=== PATIENT | female | born 1940 | race Caucasian/White ===

== ENCOUNTER 2018-11-09 02:26 | Observation (INO) ==
--- NOTE | 2018-11-09 03:39 | ED ---
HPI General Chief Complaint: Abdominal Pain Stated Complaint: lower abd pain since Monday night Time Seen by Provider: 11/09/18 03:30 History of Present Illness HPI narrative: pt has had 1 day of suprapubic pain , it in LLQ and suprapubic and increased frequency . " i am peeing every hour , " this is unusual for her. 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 Now LLQ pain and achy feeling withoout radiation , says it feels diffirent than pain she had long ago from pancreatic area . no periumbical pain Related Data Home Medications Medication Instructions Recorded Confirmed Unable to Obtain Home Meds 11/09/18 11/09/18 Allergies Allergy/AdvReac Type Severity Reaction Status Date / Time No Known Allergies Allergy Verified 11/09/18 03:08 [facility] Medical History Medical History Cancer of kidney (Acute) H/O unilateral nephrectomy (Acute) H/O: hysterectomy (Acute) Pancreatic cancer (Acute) Social History Social History Substance History: No History of Abuse Second Hand Smoke Exposure: No Smoking Status: Never smoker How Often Do You Have a Drink Containing Alcohol: Never Recent Travel in [facility] within the Last 8 Weeks: No Recent Out of Country Travel within the Last 8 Weeks: No Immunization History Tetanus Immunization: >5 Years Exam Narrative Exam Narrative: GENERAL: pt is non toxic appearing no sign of distress SKIN: Warm and dry. HEAD: Atraumatic. Normocephalic. EYES: Pupils equal and round. No scleral icterus. No injection or drainage. ENT: No nasal bleeding or discharge. Mucous membranes pink and moist. NECK: Trachea midline. No JVD. CARDIOVASCULAR: Regular rate and rhythm. RESPIRATORY: No accessory muscle use. Clear to auscultation. Breath sounds equal bilaterally. GASTROINTESTINAL: Abdomen tender LLQ pain non distended . MUSCULOSKELETAL: Extremities without clubbing, cyanosis, or edema. No obvious deformities. NEUROLOGICAL: Awake and alert. No obvious cranial nerve deficits. Motor grossly within normal limits. Five out of 5 muscle strength in the arms and legs. Normal speech. PSYCHIATRIC: Appropriate mood and affect; insight and judgment normal. Course Initial Documented Vital Signs Temperature 98.6 F 11/09/18 02:30 Pulse Rate 88 11/09/18 02:30 Respiratory Rate 18 11/09/18 02:30 Blood Pressure 173/73 H 11/09/18 02:30 Pulse Oximetry 98 11/09/18 02:30 Last Documented Vital Signs Temperature 99 F 11/09/18 07:15 Pulse Rate 74 11/09/18 07:15 Respiratory Rate 16 11/09/18 07:15 Blood Pressure 118/86 11/09/18 07:15 Pulse Oximetry 98 11/09/18 07:15 Medical Decision Making Lab Data Result diagrams: 11/09/18 03:51 11/09/18 03:51 Lab Results 11/09/18 11/09/18 11/09/18 Range/Units 03:51 03:51 03:51 CBC w Diff Auto diff final WBC 7.6 (4.0-11.0) th/mm3 RBC 3.68 L (4.00-5.30) mil/mm3 Hgb 10.8 L (11.6-15.3) gm/dL Hct 33.8 L (35.0-46.0) % MCV 91.8 (80.0-100.0) fL MCH 29.3 (27.0-34.0) pg MCHC 31.9 L (32.0-36.0) % RDW 14.4 (11.6-17.2) % Plt Count 293 (150-450) th/mm3 MPV 9.4 (7.0-11.0) fL Neut % (Auto) 74.4 H (16.0-70.0) % Lymph % (Auto) 16.9 (9.0-44.0) % [place] % (Auto) 6.9 (0.0-8.0) % Eos % (Auto) 1.3 (0.0-4.0) % Baso % (Auto) 0.5 (0.0-2.0) % Neut # (Auto) 5.7 (1.8-7.7) th/mm3 Lymph # (Auto) 1.3 (1.0-4.8) th/mm3 [place] # (Auto) 0.5 (0.0-0.9) th/mm3 Eos # (Auto) 0.1 (0.0-0.4) th/mm3 Baso # (Auto) 0.0 (0.0-0.2) th/mm3 WBC Differential . Differential Comment . Sodium 140 (136-145) meq/L Potassium 4.9 (3.5-5.1) meq/L Chloride 107 (98-107) meq/L Carbon Dioxide 26.0 (21.0-32.0) meq/L Anion Gap 7 (5-15) meq/L BUN 27 H (7-18) mg/dL Creatinine 1.30 H (0.50-1.00) mg/dL Estimated GFR 40 L (>89) mL/min Random Glucose 116 H (74-106) mg/dL Calcium 8.4 L (8.5-10.1) mg/dL Total Bilirubin 0.4 (0.2-1.0) mg/dL AST 21 (15-37) U/L ALT 17 (10-53) U/L Alkaline Phosphatase 76 (45-117) U/L Total Protein 6.6 (6.4-8.2) g/dL Albumin 2.9 L (3.4-5.0) g/dL Lipase 56 L (73-393) U/L Urine Color (Yellw/Straw) Urine Clarity (Clear) Urine pH (5.0-8.5) Ur Specific [place] (1.002-1.035) Urine Protein (Neg-Trace) mg/dL Urine Glucose (UA) (Negative) mg/dL Urine Ketones (Negative) mg/dL Urine Occult Blood (Negative) Urine Nitrate (Negative) Urine Bilirubin (Negative) Urine Urobilinogen (Less than 2) mg/dL Ur Leukocyte Esterase (Negative) Urine RBC (0-3) /hpf Urine WBC (0-5) /hpf Ur Squamous Epith Cells (0-5) /hpf Urine Bacteria (None) /hpf Ur Microscopic Review 11/09/18 Range/Units 03:51 CBC w Diff WBC (4.0-11.0) th/mm3 RBC (4.00-5.30) mil/mm3 Hgb (11.6-15.3) gm/dL Hct (35.0-46.0) % MCV (80.0-100.0) fL MCH (27.0-34.0) pg MCHC (32.0-36.0) % RDW (11.6-17.2) % Plt Count (150-450) th/mm3 MPV (7.0-11.0) fL Neut % (Auto) (16.0-70.0) % Lymph % (Auto) (9.0-44.0) % [place] % (Auto) (0.0-8.0) % Eos % (Auto) (0.0-4.0) % Baso % (Auto) (0.0-2.0) % Neut # (Auto) (1.8-7.7) th/mm3 Lymph # (Auto) (1.0-4.8) th/mm3 [place] # (Auto) (0.0-0.9) th/mm3 Eos # (Auto) (0.0-0.4) th/mm3 Baso # (Auto) (0.0-0.2) th/mm3 WBC Differential Differential Comment Sodium (136-145) meq/L Potassium (3.5-5.1) meq/L Chloride (98-107) meq/L Carbon Dioxide (21.0-32.0) meq/L Anion Gap (5-15) meq/L BUN (7-18) mg/dL Creatinine (0.50-1.00) mg/dL Estimated GFR (>89) mL/min Random Glucose (74-106) mg/dL Calcium (8.5-10.1) mg/dL Total Bilirubin (0.2-1.0) mg/dL AST (15-37) U/L ALT (10-53) U/L Alkaline Phosphatase (45-117) U/L Total Protein (6.4-8.2) g/dL Albumin (3.4-5.0) g/dL Lipase (73-393) U/L Urine Color Yellow (Yellw/Straw) Urine Clarity Slightly cloudy (Clear) Urine pH 5.5 (5.0-8.5) Ur Specific [place] 1.025 (1.002-1.035) Urine Protein 100 H (Neg-Trace) mg/dL Urine Glucose (UA) Negative (Negative) mg/dL Urine Ketones Negative (Negative) mg/dL Urine Occult Blood Moderate H (Negative) Urine Nitrate Negative (Negative) Urine Bilirubin Negative (Negative) Urine Urobilinogen 0.2 (Less than 2) mg/dL Ur Leukocyte Esterase Negative (Negative) Urine RBC 0-3 (0-3) /hpf Urine WBC 0-5 (0-5) /hpf Ur Squamous Epith Cells 0-5 (0-5) /hpf Urine Bacteria Occasional H (None) /hpf Ur Microscopic Review Microscopic reviewed Imaging Data Radiologist's impression: Abdomen/Pelvis CT 11/09/18 05:16 CONCLUSION: 1. I don't have any priors. There is a large, malignant appearing mass in the curtis hepatis, presumably arising from the pancreatic head. It engulfs the second and third portions of the duodenum but without gastric obstruction. Also only slight intrahepatic biliary distention. No evidence of distant metastatic disease. 2. Moderate severity, uncomplicated acute diverticulitis of the sigmoid colon. 3. Cholecystectomy, right nephrectomy and hysterectomy changes. Discharge Plan Physicians Team ED Provider: Milton Mclaughlin Primary Care Provider: UNKNOWN, Rxs /Orders / Referrals /Forms Prescriptions: No Action Unable to Obtain Home Meds RF: 0 Status ED Status: With Doctor
[2018-11-09 04:01] LABS: Clarity,Urine Slightly Cloudy (Clear); Color,Urine Yellow (Yellw/Straw); Glucose,Urine (UA) Negative (Negative); PH,Urine 5.5 (5.0-8.5); Specific Gravity,Urine 1.025 (1.002-1.035)
[2018-11-09 04:02] LABS: Bilirubin,Urine Negative (Negative); Leukocyte Esterase,Urine Negative (Negative); Nitrite,Urine Negative (Negative); Urobilinogen,Urine 0.2 mg/dL (Less than 2)
[2018-11-09 04:03] LABS: Baso % (Auto) 0.5 % (0.0-2.0); Eos # (Auto) 0.1 th/mm3 (0.0-0.4); Eos % (Auto) 1.3 % (0.0-4.0); Hematocrit 33.8 % (35.0-46.0); Hemoglobin 10.8 gm/dL (11.6-15.3); Lymph # (Auto) 1.3 th/mm3 (1.0-4.8); Lymph % (Auto) 16.9 % (9.0-44.0); Mean Corpuscular HGB Conc 31.9 % (32.0-36.0); Mean Corpuscular Hemoglobin 29.3 pg (27.0-34.0); Mean Corpuscular Volume 91.8 fL (80.0-100.0); Mean Platelet Volume 9.4 fL (7.0-11.0); Mono # (Auto) 0.5 th/mm3 (0.0-0.9); Mono % (Auto) 6.9 % (0.0-8.0); Neut # (Auto) 5.7 th/mm3 (1.8-7.7); Neut % (Auto) 74.4 % (16.0-70.0); Platelet Count 293 th/mm3 (150-450); Red Blood Count 3.68 mil/mm3 (4.00-5.30); Red Cell Distribution Width 14.4 % (11.6-17.2); White Blood Count 7.6 th/mm3 (4.0-11.0)
[2018-11-09 04:17] LABS: Chloride 107 meq/L (98-107); Potassium 4.9 meq/L (3.5-5.1); Sodium 140 meq/L (136-145)
[2018-11-09 04:18] LABS: Bacteria,Urine Occasional /hpf; RBC,Urine 0-3 /hpf (0-3); Squamous Epithelial Cell,Urine 0-5 /hpf (0-5); WBC,Urine 0-5 /hpf (0-5)
[2018-11-09 04:20] LABS: Calcium 8.4 mg/dL (8.5-10.1)
[2018-11-09 04:21] LABS: Albumin 2.9 g/dL (3.4-5.0); Anion Gap 7 meq/L (5-15); Blood Urea Nitrogen 27 mg/dL (7-18); Glucose,Random 116 mg/dL (74-106)
[2018-11-09 04:24] LABS: Alanine Aminotransferase 17 U/L (10-53); Aspartate Aminotransferase 21 U/L (15-37); Glomerular Filtration Rate 40 mL/min (>89)
[2018-11-09 04:25] LABS: Total Protein 6.6 g/dL (6.4-8.2)
[2018-11-09 04:27] LABS: Alkaline Phosphatase 76 U/L (45-117)
--- NOTE | 2018-11-09 06:57 | CT ---
EXAM DATE: 11/09/2018 6:46 AM EST AGE/SEX: 78 years / Female INDICATIONS: Left lower quadrant pain. CLINICAL DATA: This is the patient's initial encounter. Patient reports that signs and symptoms have been present for 1 day and indicates a pain score of 5/10. MEDICAL/SURGICAL HISTORY: . Renal cancer. Pancreatic cancer. . Hysterectomy. Unilateral nephre ctomy. RADIATION DOSE: 24.53 CTDI (mGy) COMPARISON: No prior exams available for comparison. TECHNIQUE: Multiple contiguous axial images were obtained through the abdomen. Images were obtained using multiple row detector helical technique. Using automated exposure control and adjustment of the mA and/or kV according to patient size, radiation dose was kept as low as reasonably achievable to o btain optimal diagnostic quality images. DICOM format image data is available electronically for rev iew and comparison. FINDINGS: There is a mass in the curtis hepatis measuring approximately 5.5 x 7.3 x 6.6 cm in size, appears to b e arising from the pancreatic head. It engulfs the second and third portions of the duodenum. Pancrea tic body and tail are atrophic. There is only mild intrahepatic biliary distention. Patient has had c holecystectomy and right nephrectomy. No focal hepatic lesion. Noncontrast appearance of the spleen, adrenal glands and left kidney within normal limits. There is moderate severity, acute diverticulitis of the sigmoid colon. No abscess, perforation or obs truction. Evidence of previous hysterectomy. Trace atelectasis of the visualized lung bases. No acute bony abnormality demonstrated. Degenerative changes are seen in the spine and sacroiliac joints. CONCLUSION: 1. I don't have any priors. There is a large, malignant appearing mass in the curtis hepatis, presuma kirstin arising from the pancreatic head. It engulfs the second and third portions of the duodenum but wi thout gastric obstruction. Also only slight intrahepatic biliary distention. No evidence of distant m etastatic disease. 2. Moderate severity, uncomplicated acute diverticulitis of the sigmoid colon. 3. Cholecystectomy, right nephrectomy and hysterectomy changes. Electronically signed by: Alberto Aranda MD Board Certified Radiologist 11/09/2018 6:55 AM EST
[2018-11-09] MEDS ORDERED: Ciprofloxacin 400 MG/200 ML 400 MG/200 ML PIGGYBACK IV.SIG ONE (07:15)
[2018-11-09] MEDS ORDERED: Bisacodyl 10 MG Supp RECTAL PRN (07:59)
[2018-11-09] MEDS ORDERED: Acetaminophen 325 MG Tablet PO PRN (07:59)
[2018-11-09] MEDS: Sod Chloride 0.9% Inj 1,000 ML IV.CONT SCH (09:21)
[2018-11-09] MEDS ORDERED: Naloxone Inj 0.4 MG/ML Vial IV.PUSH PRN (17:42)
[2018-11-09] MEDS ORDERED: oxyCODONE/Acetaminophen 10/325 Tablet PO PRN (17:42)
--- NOTE | 2018-11-09 17:55 | P.HPIM ---
History of Present Illness Primary Care Physician: UNKNOWN History of Present Illness: 78-year-old female with a history of reportedly incurable renal cell carcinoma with known metastasis to pancreas, currently on chemotherapy holiday for the past 2 months, who presents with a 2-day history of crampy intermittent left lower quadrant abdominal pain occasionally radiating to the right lower quadrant. Denies any fevers, chills, chest pain, shortness breath, nausea, vomiting, diarrhea, constipation. Review of Systems Patient reports chronic night sweats All other systems reviewed negative except as stated in HPI PMFSH - History History Provided By: Patient - Medical History Medical History: Medical History (Last Reviewed 11/09/18 @ 17:45 by Kirt Medellin MD) Cancer of kidney H/O unilateral nephrectomy H/O: hysterectomy Pancreatic cancer - Family History Family History: Family History (Last Reviewed 11/09/18 @ 17:45 by Kirt Medellin MD) Mother Cancer Father Cancer - Social History I have reviewed the patient's Social History: Yes - Tobacco History Second Hand Smoke Exposure: No Tobacco Use In Past 30 Days: No Smoking Status: Former smoker Tobacco Type: Cigarettes - Alcohol History How Often Do You Have a Drink Containing Alcohol: Never - Substance Use History Substance History: No History of Abuse - Travel History Recent Travel in the [place] Within the Last 8 Weeks: Yes Recent Travel Out of the Country Within the Last 8 Weeks: No - Immunization History Tetanus Immunization: >5 Years Medications and Allergies Active Medications: Active Medications Acetaminophen (Tylenol) 650 mg PO Q4H PRN PRN Reason: Temp > 100.4 Al Hydroxide/Mg Hydroxide (Milk Of Magnesia Liq) 30 ml PO Q12H PRN PRN Reason: Mild Constipation Bisacodyl (Dulcolax Supp) 10 mg RECTAL DAILY PRN PRN Reason: SEVERE CONSITIPATION Metronidazole/Sodium Chloride (Flagyl 500 Mg Inj) 100 mls @ 100 mls/hr IV.SIG Q6H MICHAEL Last Infusion: 11/09/18 15:32 Dose: Infused Ciprofloxacin/Dextrose (Cipro 400 Mg/200 Ml Inj) 400 mg in 200 mls @ 200 mls/ hr IV.SIG Q12H MICHAEL Sodium Chloride (Ns Inj) 1,000 mls @ 60 mls/hr IV.CONT .[id number] MICHAEL Last Infusion: 11/09/18 11:55 Dose: 60 mls/hr Lactulose (Lactulose Liq) 30 ml PO DAILY PRN PRN Reason: SEVERE CONSITIPATION Ondansetron HCl (Zofran Inj) 4 mg IV.PUSH Q6H PRN PRN Reason: NAUSEA OR VOMITING Sennosides (Senokot) 17.2 mg PO Q12H PRN PRN Reason: Moderate Constipation Sodium Chloride (Ns Flush) 2 ml IV.FLUSH BID [facility] Last Admin: 11/09/18 12:49 Dose: Not Given Sodium Chloride (Ns Flush) 2 ml IV.FLUSH PRN PRN PRN Reason: FLUSH AFTER USING IV ACCESS Allergies Allergy/AdvReac Type Severity Reaction Status Date / Time No Known Allergies Allergy Verified 11/09/18 03:08 Home Medications Medication Instructions Recorded Confirmed Type levothyroxine PO DAILY 11/09/18 History Exam Vital signs: Vital Signs 11/09/18 02:30 11/09/18 06:30 11/09/18 07:15 Temperature 98.6 F 99 F Pulse Rate 88 72 74 Respiratory Rate 18 16 16 Blood Pressure 173/73 H 145/66 H 118/86 Pulse Oximetry 98 100 98 11/09/18 09:23 11/09/18 11:56 11/09/18 16:00 Temperature 99.7 F H Pulse Rate 70 68 71 Respiratory Rate 16 16 20 Blood Pressure 104/70 104/50 L Pulse Oximetry 94 L 98 96 Intake & Output 11/08/18 11/09/18 11/09/18 18:59 06:59 18:59 Intake Total 700 / 700 Output Total 401 / 401 Balance 299 / 299 Weight 90.4 kg Intake: IV 460 / 460 NS Inj 1,000 ML @ 60 mls/hr IV. 60 / 60 CONT .[id number] [facility] Rx#: [id number] Cipro 400 MG/200 ML Inj 400 mg 200 / 200 In 200 ml @ 200 mls/hr IV.SIG ONCE ONE Rx#:[id number] Flagyl 500 MG Inj 100 ML @ 100 200 / 200 mls/hr IV.SIG Q6H [facility] Rx#: [id number] Oral 240 / 240 Output: Urine 400 / 400 Stool 1 / Other: Date of Last Bowel Movement 11/09/18 Narrative: GENERAL: Patient sitting up in bed. Appears comfortable. SKIN: Warm and dry. HEAD: Atraumatic. Normocephalic. EYES: Pupils equal and round. No scleral icterus. No injection or drainage. ENT: No nasal bleeding or discharge. Mucous membranes pink and moist. NECK: Trachea midline. No JVD. CARDIOVASCULAR: Regular rate and rhythm. RESPIRATORY: No accessory muscle use. Clear to auscultation. Breath sounds equal bilaterally. GASTROINTESTINAL: Abdomen soft, non-tender, nondistended. Hepatic and splenic margins not palpable. MUSCULOSKELETAL: Extremities without clubbing, cyanosis, or edema. No obvious deformities. NEUROLOGICAL: Awake and alert. No obvious cranial nerve deficits. Motor grossly within normal limits. Five out of 5 muscle strength in the arms and legs. Normal speech. PSYCHIATRIC: Appropriate mood and affect; insight and judgment normal. Results - Labs CBC & Chem 7: 11/09/18 03:51 11/09/18 03:51 Labs: Short CBC 11/09/18 Range/Units 03:51 WBC 7.6 (4.0-11.0) th/mm3 Hgb 10.8 L (11.6-15.3) gm/dL Hct 33.8 L (35.0-46.0) % Plt Count 293 (150-450) th/mm3 BMP 11/09/18 03:51 Sodium 140 Potassium 4.9 Chloride 107 Carbon Dioxide 26.0 BUN 27 H Creatinine 1.30 H Calcium 8.4 L Liver Function 11/09/18 Range/Units 03:51 Total Bilirubin 0.4 (0.2-1.0) mg/dL AST 21 (15-37) U/L ALT 17 (10-53) U/L Alkaline Phosphatase 76 (45-117) U/L Albumin 2.9 L (3.4-5.0) g/dL Urine 11/09/18 Range/Units 03:51 Urine Color Yellow (Yellw/Straw) Urine Clarity Slightly cloudy (Clear) Urine pH 5.5 (5.0-8.5) Ur Specific [place] 1.025 (1.002-1.035) Urine Protein 100 H (Neg-Trace) mg/dL Urine Glucose (UA) Negative (Negative) mg/dL - Imaging Impressions Abdomen/Pelvis CT 11/09/18 05:16 CONCLUSION: 1. I don't have any priors. There is a large, malignant appearing mass in the curtis hepatis, presumably arising from the pancreatic head. It engulfs the second and third portions of the duodenum but without gastric obstruction. Also only slight intrahepatic biliary distention. No evidence of distant metastatic disease. 2. Moderate severity, uncomplicated acute diverticulitis of the sigmoid colon. 3. Cholecystectomy, right nephrectomy and hysterectomy changes. Caprini VTE Risk Assessment Caprini VTE Risk Assessment: Moderate/High Risk (score >= 2) Caprini Risk Assessment Model: Point Value = 1 Point Value = 2 Point Value = 3 Point Value = 5 Age 41-60 Minor surgery BMI > 25 kg/m2 Swollen legs Varicose veins or History of unexplained or recurrent spontaneous Oral contraceptives or hormone replacement Sepsis (< 1 month) Serious lung disease, including pneumonia (< 1 month) Abnormal pulmonary function Acute myocardial infarction Congestive heart failure (< 1 month) History of inflammatory bowel disease Medical patient at bed rest Age 61-74 Arthroscopic surgery Major open surgery (> 45 min) Laparoscopic surgery (> 45 min) Malignancy Confined to bed (> 72 hours) Immobilizing plaster cast Central venous access Age >= 75 History of VTE Family history of VTE Factor V Leiden Prothrombin [id number] Lupus anticoagulant Anticardiolipin antibodies Elevated serum homocysteine Heparin-induced thrombocytopenia Other congenital or acquired thrombophilia Stroke (< 1 month) Elective arthroplasty Hip, pelvis, or leg fracture Acute spinal cord injury (< 1 month) Prophylaxis Regimen: Total Risk Factor Score Risk Level Prophylaxis Regimen 0-1 Low Early ambulation 2 Moderate Order ONE of the following: *Sequential Compression Device (SCD) *Heparin 5000 units SQ BID 3-4 Higher Order ONE of the following medications: *Heparin 5000 units SQ TID *Enoxaparin/Lovenox 40 mg SQ daily (WT < 150 kg, CrCl > 30 mL/min) *Enoxaparin/Lovenox 30 mg SQ daily (WT < 150 kg, CrCl > 10-29 mL/min) *Enoxaparin/Lovenox 30 mg SQ BID (WT < 150 kg, CrCl > 30 mL/min) AND/OR *Sequential Compression Device (SCD) 5 or more Highest Order ONE of the following medications: *Heparin 5000 units SQ TID (Preferred with Epidurals) *Enoxaparin/Lovenox 40 mg SQ daily (WT < 150 kg, CrCl > 30 mL/min) *Enoxaparin/Lovenox 30 mg SQ daily (WT < 150 kg, CrCl > 10-29 mL/min) *Enoxaparin/Lovenox 30 mg SQ BID (WT < 150 kg, CrCl > 30 mL/min) AND *Sequential Compression Device (SCD) Assessment and Plan - Plan //Acute diverticulitis -CT abdomen with sigmoid diverticulitis, moderate severity. -Continue on broad-spectrum IV antibiotics. Pain control. //History of metastatic renal cell carcinoma, currently on chemotherapy holiday for the past 2 months -Patient off chemotherapy due to intolerance. Patient with known pancreatic mass. Follow-up with oncology as outpatient. Patient is a full code however. //Chronic hypothyroidism. Awaiting home medication reconciliation. Discussed Condition With: Patient, nurse, ED physician. Discharge Planning: hopefully patient can discharge home tomorrow if feeling better. H&P: Quality - VTE Deep Vein Thrombosis/Pulmonary Embolism Present on Admission: No
[2018-11-09] MEDS: Ciprofloxacin 400 MG/200 ML 400 MG/200 ML PIGGYBACK IV.SIG SCH (21:19)
[2018-11-10] MEDS: Sod Chloride 0.9% Inj 1,000 ML IV.CONT SCH (02:58)
[2018-11-10] MEDS: Ciprofloxacin 400 MG/200 ML 400 MG/200 ML PIGGYBACK IV.SIG SCH (08:19)
[2018-11-10 10:05] LABS: Baso # (Auto) 0.1 th/mm3 (0.0-0.2); Baso % (Auto) 1.6 % (0.0-2.0); Eos # (Auto) 0.1 th/mm3 (0.0-0.4); Eos % (Auto) 2.1 % (0.0-4.0); Hematocrit 30.1 % (35.0-46.0); Hemoglobin 9.7 gm/dL (11.6-15.3); Lymph # (Auto) 0.5 th/mm3 (1.0-4.8); Lymph % (Auto) 9.6 % (9.0-44.0); Mean Corpuscular HGB Conc 32.3 % (32.0-36.0); Mean Corpuscular Hemoglobin 29.7 pg (27.0-34.0); Mean Corpuscular Volume 92.1 fL (80.0-100.0); Mono # (Auto) 0.4 th/mm3 (0.0-0.9); Mono % (Auto) 6.4 % (0.0-8.0); Neut # (Auto) 4.5 th/mm3 (1.8-7.7); Neut % (Auto) 80.3 % (16.0-70.0); Platelet Count 234 th/mm3 (150-450); Red Blood Count 3.27 mil/mm3 (4.00-5.30); White Blood Count 5.6 th/mm3 (4.0-11.0)
[2018-11-10 10:11] LABS: Chloride 107 meq/L (98-107); Potassium 4.4 meq/L (3.5-5.1); Sodium 139 meq/L (136-145)
[2018-11-10 10:14] LABS: Calcium 7.8 mg/dL (8.5-10.1)
[2018-11-10 10:15] LABS: Albumin 2.4 g/dL (3.4-5.0); Anion Gap 9 meq/L (5-15); Blood Urea Nitrogen 29 mg/dL (7-18); Carbon Dioxide 22.8 meq/L (21.0-32.0); Glucose,Random 149 mg/dL (74-106)
[2018-11-10 10:18] LABS: Alanine Aminotransferase 28 U/L (10-53); Aspartate Aminotransferase 34 U/L (15-37); Glomerular Filtration Rate 34 mL/min (>89)
[2018-11-10 10:21] LABS: Alkaline Phosphatase 95 U/L (45-117)
--- NOTE | 2018-11-10 10:38 | P.PNIM ---
Subjective Interval history: Patient says she is feeling much better. Reports pain is resolved. Denies any nausea or vomiting. Feels like going home. Physical Exam Vital signs: Vital Signs 11/09/18 11:56 11/09/18 16:00 11/09/18 20:00 Temperature 99.7 F H 99.5 F Pulse Rate 68 71 85 Respiratory Rate 16 20 18 Blood Pressure 104/50 L 123/57 L Pulse Oximetry 98 96 96 11/10/18 00:00 11/10/18 08:00 Temperature 99.3 F 97.0 F L Pulse Rate 82 69 Respiratory Rate 18 18 Blood Pressure 141/63 H 127/64 Pulse Oximetry 96 97 Intake & Output 11/09/18 11/10/18 11/10/18 18:59 06:59 18:59 Intake Total 700 / 700 1820 / 1820 200 / 200 Output Total 401 / 401 Balance 299 / 299 1820 / 1820 200 / 200 Weight 90.8 kg Intake: IV 460 / 460 1340 / 1340 200 / 200 NS Inj 1,000 ML @ 60 mls/hr IV. 60 / 60 940 / 940 CONT .[id number] MICHAEL Rx#: [id number] Cipro 400 MG/200 ML Inj 400 mg 200 / 200 200 / 200 200 / 200 In 200 ml @ 200 mls/hr IV.SIG Q12H MICHAEL Rx#:[id number] Flagyl 500 MG Inj 100 ML @ 100 200 / 200 200 / 200 mls/hr IV.SIG Q6H MICHAEL Rx#: [id number] Oral 240 / 240 480 / 480 Output: Urine 400 / 400 Stool Other: # Voids 5 Date of Last Bowel Movement 11/09/18 11/09/18 Narrative: GENERAL: Patient sitting up in bed. Appears comfortable. Alert and oriented x4. SKIN: Warm and dry. HEAD: Atraumatic. Normocephalic. EYES: Pupils equal and round. No scleral icterus. No injection or drainage. ENT: No nasal bleeding or discharge. Mucous membranes pink and moist. NECK: Trachea midline. No JVD. CARDIOVASCULAR: Regular rate and rhythm. RESPIRATORY: No accessory muscle use. Clear to auscultation. Breath sounds equal bilaterally. GASTROINTESTINAL: Abdomen soft, non-tender, nondistended. Hepatic and splenic margins not palpable. No rebound or guarding. Positive bowel sounds. MUSCULOSKELETAL: Extremities without clubbing, cyanosis, or edema. No obvious deformities. NEUROLOGICAL: Awake and alert. No obvious cranial nerve deficits. Motor grossly within normal limits. Five out of 5 muscle strength in the arms and legs. Normal speech. PSYCHIATRIC: Appropriate mood and affect; insight and judgment normal. Results - Labs CBC & Chem 7: 11/10/18 09:01 11/10/18 09:01 Laboratory Results - last 24 hr 11/10/18 11/10/18 09:01 09:01 CBC w Diff Auto diff final WBC 5.6 RBC 3.27 L Hgb 9.7 L Hct 30.1 L MCV 92.1 MCH 29.7 MCHC 32.3 RDW 14.0 Plt Count 234 MPV 10.0 Neut % (Auto) 80.3 H Lymph % (Auto) 9.6 [place] % (Auto) 6.4 Eos % (Auto) 2.1 Baso % (Auto) 1.6 Neut # (Auto) 4.5 Lymph # (Auto) 0.5 L [place] # (Auto) 0.4 Eos # (Auto) 0.1 Baso # (Auto) 0.1 WBC Differential . Differential Comment . Sodium 139 Potassium 4.4 Chloride 107 Carbon Dioxide 22.8 Anion Gap 9 BUN 29 H Creatinine 1.50 H Estimated GFR 34 L Random Glucose 149 H Calcium 7.8 L Total Bilirubin 0.6 AST 34 ALT 28 Alkaline Phosphatase 95 Total Protein 6.0 L D Albumin 2.4 L Assessment and Plan - Plan //Acute diverticulitis -CT abdomen with sigmoid diverticulitis, moderate severity. -Continue on broad-spectrum IV antibiotics. Pain control. = 11/10. Pain has resolved. Will discharge home on course of Cipro and metronidazole to complete treatment course. I advised patient to take daily MiraLAX [id number] as needed to ensure one soft bowel movement per day. Patient is to follow-up with primary care as outpatient. Patient conveys understanding. //History of metastatic renal cell carcinoma, currently on chemotherapy holiday for the past 2 months -Patient off chemotherapy due to intolerance. Patient with known pancreatic mass. Follow-up with oncology as outpatient. Patient is a full code however. = Patient will continue on chemotherapy holiday. Follow-up with primary oncologist. //Chronic hypothyroidism. Continue home medication Discharge Planning: Discharge home
== END 2018-11-10 11:21 | disposition home or self-care (01) ==
LOC: PHEDA 02:26 → PHED 02:26 → PH3 12:00
PROVIDERS: ADMIT Internal Medicine; ATTEND Internal Medicine
DX: C64.9 Malignant neoplasm of unspecified kidney, except renal pelvis; K57.32 Diverticulitis of large intestine without perforation or abscess without bleeding; C78.89 Secondary malignant neoplasm of other digestive organs; Z90.5 Acquired absence of kidney; E03.9 Hypothyroidism, unspecified; Z90.710 Acquired absence of both cervix and uterus; Z92.21 Personal history of antineoplastic chemotherapy; F17.210 Nicotine dependence, cigarettes, uncomplicated
CPT/HCPCS: 74176; 80053; 81001; 83690; 85025; 90765; 96361; 96365; 96366; 96367; 96368; 99285; G0378; J0744; J7030